=== PATIENT | male | born 1985 | race Caucasian/White ===

== ENCOUNTER 2016-11-12 02:59 | Emergency (ER) | payer OTHER ==
--- NOTE | 2016-11-13 09:46 | Diagnostic Imaging Report ---
MECHE OCASIO [facility] [address] [facility], [facility] [address] [place], [place]. [address] Report Submission Date: Nov 12, 2016 3:57:52 AM CDT Patient Study Name: SHAUN STERN Date: Nov 12, 2016 3:46:13 AM CDT Modality Type: CT\SR Gender: M Description: CT ABD & PELVIS W/O CO : 87 Institution: [facility] Physician: MECHE OCASIO CT abdomen pelvis without contrast History:LT. FLANK PAIN. HX STONES Technique: Transaxial computed tomographic images of the abdomen and pelvis were obtained without the use of intravenous contrast according to standard protocol. Findings: The lung bases are clear. Heart size is normal. The liver, gallbladder, pancreas, spleen, and adrenal glands are normal. There is mild left hydronephrosis and hydroureter present with 3 mm stone at the left uretrovesicular junction. No additional intrarenal calculi are identified. No bowel wall thickening or dilation. The vascular structures are normal. There is no adenopathy present. The bone windows are normal. Impression: 1. 3 mm left ureterovesicular junction calculus resulting in mild left hydronephrosis and hydroureter. 2. no additional intrarenal calculi identified. Electronically signed on Nov 12, 2016 3:57:52 AM CDT by: Reagan MOTA
== END 2016-11-12 04:30 ==
LOC: ED 02:59
DX: R10.9 Unspecified abdominal pain (principal); R11.0 Nausea
CPT/HCPCS: 74176; 99283

== ENCOUNTER 2017-07-13 21:30 | Emergency (ER) | payer OTHER ==
--- NOTE | 2017-07-13 21:36 | ED Physician Documentation ---
Foot Injury - HISTORIAN Historian: patient - HPI Stated Complaint: right foot pain after falling off a ladder onto a bike Chief Complaint: Foot Injury Onset: hours (6) Where: home Severity: mild Context: fall Associated Symptoms:: popping sensation. denies: tingling, numbness distally, swelling, unable to bear weight, seizure, fainted Modifying Factors:: pain on movement Further Comments: yes (He staes he fell back off a ladder and stepped wrong on a bike. He felt it "pop marcos" and he states he got up went on about his evening and notes the pain started to increase on the right lateral side. He has more pain with movement or standing. More pain in the "arch and ankle with walking" No OTC meds were taken for pain. No change in sensation.) - ROS CONST: no problems - PAST HX Past History: none Immunizations: UTD Allergies/Adverse Reactions: Allergies Allergy/AdvReac Type Severity Reaction Status Date / Time No Known Allergies Allergy Unverified 09/25/12 10:25 - SOCIAL HX Smoking History: non-smoker Alcohol Use: none Drug Use: none - FAMILY HX Family History: none - REVIEWED ASSESSMENTS Nursing Assessment Reviewed: Yes Vitals Reviewed: Yes Progress - Progress Progress: 2242: Pain is "better" DG 2245: Discharge instructions discussed without any questions. He is requesting off the weekend due to lifting at work> DG ED Results Lab/Radiology - Radiology Radiology Impressions: Right foot 3 views Date of Exam: July 13, 2017. History: PAIN AFTER FALLING OFF LADDER (Hx) / ITS.REASON Pain fall from ladder Findings: No acute fracture or dislocation is identified. The tibiotalar alignment is maintained. The metatarsals and phalanges are intact. The bones of the hindfoot are normal. Impression: No acute osseous abnormality. Electronically signed on July 13, 2017 10:40:14 PM CDT by: Adolfo Jorgensen Right ankle 3 views Date of Exam: July 13, 2017. History: PAIN AFTER FALLING OFF LADDER (Hx) / ITS.REASON pain fall from ladder Findings: No acute fracture or dislocation is identified. The tibiotalar alignment is maintained. The bones of the hindfoot are intact. Impression: No acute osseous abnormality. Electronically signed on July 13, 2017 10:41:06 PM CDT by: Adolfo Jorgensen Foot Injury Physical Exam - Physical Exam General Appearance: no acute distress, alert Foot: right foot: limited range of motion, pain (lateral side of foot right ), left foot: non-tender, bone tenderness, bilateral foot: normal inspection, normal range of motion, no evidence of injury, abrasions/lacerations, N/A: deformity, ecchymosis, infection, nodule, soft tissue tenderness, swelling Ankle: right: pain, left: non-tender, bone tenderness, bilateral: normal inspection, normal range of motion, no evidence of injury, abrasions/laceration , deformity, N/A: ecchymosis, joint effusion, limited range of motion, nodules, soft tissue tenderness, swelling Gait: limited by pain Neuro: sensation nml, motor nml Vascular: no vascular compromise Tendons: tendon function nml Leg/Knee/Thigh: uninjured above ankle Head/ENT: nml inspection Neck/Back: nml inspection Resp/CVS: chest non-tender, breath sounds nml, heart sounds nml, no resp. distress, lungs clear Abdomen: non-tender Discharge Clincal Impression: Foot pain, right Referrals: Primary Doctor,No [REFERRING] - 2 Days Additional Instructions: 1. Ibuprofen or Tylenol as needed for pain 2. Ice and elevation 3. Follow up with PCP in 2-4 days if no improvement 4. return to ER for concerns- increased pain or swelling or other concerns Condition: Stable Disposition: 01 HOME, SELF-CARE Decision to Admit: NO Date of Decison to Admit: 07/13/17 Decision Time: 22:59
[2017-07-13] MEDS ORDERED: fentaNYL CITRATE/PF 100 MCG/ 2ML AMP IM ONE (22:07)
--- NOTE | 2017-07-13 22:41 | Diagnostic Imaging Report ---
CAMACHO LAZAR [facility] [place] [facility] [address] [facility] [address] [place], [place]. [address] Report Submission Date: July 13, 2017 10:40:14 PM CDT Patient Study Name: SHAUN STERN Date: July 13, 2017 10:02:37 PM CDT Modality Type: DX Gender: M Description: LOWER EXTREMITY : 87 Institution: [facility] [place] [facility] Physician: CAMACHO LAZAR Right foot 3 views Date of Exam: July 13, 2017. History: PAIN AFTER FALLING OFF LADDER (Hx) / ITS.REASON Pain fall from ladder Findings: No acute fracture or dislocation is identified. The tibiotalar alignment is maintained. The metatarsals and phalanges are intact. The bones of the hindfoot are normal. Impression: No acute osseous abnormality. Electronically signed on July 13, 2017 10:40:14 PM CDT by: Adolfo MOTA
--- NOTE | 2017-07-13 22:42 | Diagnostic Imaging Report ---
CAMACHO LAZAR [facility] [address] [facility] [address] [place], [place]. [address] Report Submission Date: July 13, 2017 10:41:06 PM CDT Patient Study Name: SHAUN STERN Date: July 13, 2017 10:06:37 PM CDT Modality Type: DX Gender: M Description: LOWER EXTREMITY : 87 Institution: [facility] Physician: CAMACHO LAZAR Right ankle 3 views Date of Exam: July 13, 2017. History: PAIN AFTER FALLING OFF LADDER (Hx) / ITS.REASON pain fall from ladder Findings: No acute fracture or dislocation is identified. The tibiotalar alignment is maintained. The bones of the hindfoot are intact. Impression: No acute osseous abnormality. Electronically signed on July 13, 2017 10:41:06 PM CDT by: Adolfo MOTA
[2017-07-14 02:04] VITALS: BP 140/89
== END 2017-07-13 23:30 | disposition home or self-care (01) ==
LOC: ED 21:30
DX: M79.671 Pain in right foot (principal); W19.XXXA Unspecified fall, initial encounter; Y92.019 Unspecified place in single-family (private) house as the place of occurrence of the external cause; Y93.9 Activity, unspecified; Y99.9 Unspecified external cause status
CPT/HCPCS: 73610; 73630; J3010; 96372